=== PATIENT | female | born 1985 ===

== ENCOUNTER → 2021-12-08 13:34 | Outpatient (CLI) | payer OTHER, SELFPAY ==
--- NOTE | 2021-12-08 13:36 | DI.RAD.S_ITS ---
PROCEDURE: XR KNEE RT 3V INDICATIONS: right knee pain/swelling, overuse injury suspected TECHNIQUE: 3 views of the knee were acquired. COMPARISON: None. FINDINGS: Bones: No fractures or dislocations. No suspicious bony lesions. Apparent bone island at the medial metadiaphyseal junction near the cortex. Soft tissues: No joint effusion. No suspicious soft tissue calcifications. IMPRESSION: No effusion or trauma found. Bone island medially, as discussed. Dictated by: David Reyes M.D. on 12/08/2021 at 14:07 Approved by: David Reyes M.D. on 12/08/2021 at 14:07
== END ==
PROVIDERS: Referring Provider Student in an Organized Health Care Education/Training Program; Visit Provider Student in an Organized Health Care Education/Training Program
DX: M25.461 Effusion, right knee (principal); M25.561 Pain in right knee
CPT/HCPCS: 73562

== ENCOUNTER → 2023-06-26 09:58 | Outpatient (CLI) | payer OTHER, SELFPAY ==
[2023-06-26 10:57] LABS: Add Manual Diff / Slide Review NO; Basophils Absolute Auto 0 /uL (0-100); Basophils Percent Auto 0.3 % (0-2); Eosinophils Absolute Auto 100 /uL (0-450); Eosinophils Percent Auto 1.7 % (2-4); Hematocrit 37.4 % (36-46); Hemoglobin 12.8 g/dL (12.0-16.0); Lymphocytes Absolute Auto 1400 /uL (1100-4500); Lymphocytes Percent Auto 22.2 % (25-40); Mean Corpuscular HGB Conc 34.3 % (30-36); Mean Corpuscular Hemoglobin 32.3 PG (26-34); Monocytes Absolute Auto 500 /uL (0-900); Monocytes Percent Auto 7.8 % (3-14); Neutrophils Absolute Auto 4200 /uL (1500-7000); Platelet Count 297 X10^3/uL (150-400); Red Blood Cell Count 3.97 X10^6/uL (4.0-5.2); Red Cell Distribution Width 12.8 % (11.6-14.8); White Blood Cell Count 6.2 X10^3/uL (4.5-11.0)
[2023-06-27 07:20] LABS: RPR Screen Non Reactive (Non Reactive)
[2023-06-27 13:59] LABS: Varicella IgG Antibody <135 index (Immune >165)
[2023-06-27 17:05] LABS: Hepatitis B Surface Antigen NEGATIVE s/c (NEGATIVE); Rubella Antibody IgG > 350.0 IU/mL (>15)
[2023-06-27 17:25] LABS: HIV 1 & 2 Ab/Ag 4th Gen Combo NEGATIVE (NEGATIVE); Hep C Virus Ab w/Reflex Quant NEGATIVE s/c (NEGATIVE)
== END ==
PROVIDERS: Referring Provider Specialist; Visit Provider Specialist
DX: Z34.80 Encounter for supervision of other normal pregnancy, unspecified trimester (principal)
CPT/HCPCS: 36415; 80055; 86787; 86803; 86850; 86900; 86901; 87086; 87389

== ENCOUNTER → 2023-07-10 11:46 | Outpatient (CLI) | payer OTHER, SELFPAY | PROVIDERS: Referring Provider Obstetrics & Gynecology; Visit Provider Obstetrics & Gynecology | DX: Z34.81 Encounter for supervision of other normal pregnancy, first trimester (principal); Z3A.13 13 weeks gestation of pregnancy | CPT/HCPCS: 36415 ==

== ENCOUNTER → 2023-08-07 11:40 | Outpatient (CLI) | payer OTHER, SELFPAY | PROVIDERS: Referring Provider Obstetrics & Gynecology; Visit Provider Obstetrics & Gynecology | DX: Z3A.17 17 weeks gestation of pregnancy (principal); Z34.82 Encounter for supervision of other normal pregnancy, second trimester | CPT/HCPCS: 36415; 82105 ==

== ENCOUNTER → 2023-09-04 11:57 | Outpatient (CLI) | payer OTHER, SELFPAY ==
--- NOTE | 2023-09-04 11:58 | DI.US.S_ITS ---
PROCEDURE: US OB >= 14 WEEKS FETUS INDICATIONS: 20 Week Anatomy Scan OUTSIDE/PRIOR DATING DATA: Last menstrual period (LMP): 04/08/23. LMP-based estimated date of delivery (JAN): 01/13/24. First dating scan (date and location): 06/12/23. Estimated date of delivery (JAN) from first dating scan: 01/11/24. The calculations are made using the clinical JAN of 01/13/24. TECHNIQUE: Real-time scanning was performed of the fetus, with image documentation and biometric measurements. Endovaginal scanning: Not performed COMPARISON: None. FINDINGS: General: A single living intrauterine gestation is present. Presentation: Transverse, head to maternal right. Placenta: Placental position is posterior , without previa. Amniotic fluid index: 18.8 cm, normal range is 5-24 cm. Single deepest vertical pocket is 5.4 cm. heart rate: 158 beats per minute. Maternal cervical canal: Closed and 5.8 cm long. Normal lower limit is 2.5 cm. biometrics: Biparietal diameter: 5.1 cm, 21 weeks three days Head circumference: 19.6 cm, 21 weeks five days Abdominal circumference: 4.0 cm, 22 weeks five days Femur length: 4.0 cm, 22 weeks five days Clinically estimated gestational age: 21 weeks two days Composite gestational age from present scan: 22 weeks 0 days Estimated weight and percentile: 499 g, 93rd percentile Anatomic survey: Neuro: Ventricles are non-dilated at less than 10 mm. Cisterna magna is normal at 3-11 mm. Cerebellum is normal in size and morphology. Nuchal skin fold: Normal at less than 6 mm between 14-21 weeks gestational age. Face: Nose and lips, facial profile are normal. Spine: No evidence for spina bifida. Heart: 4-chambered heart is present, with normal ventricular outflow tracts. Diaphragm: Diaphragm is intact. Stomach: Left-sided stomach is present. Kidneys: No hydronephrosis. Normal is less than 5 mm in 2nd trimester, less than 7 mm in 3rd trimester. Cord: 3-vessel cord has orthotopic insertion. Bladder: Normal in size. Extremities: All 4 extremities identified. IMPRESSION: Single living intrauterine with composite gestational age in good agreement with clinical gestational age. Symmetric growth and normal anatomy. Closed cervix and normal amniotic fluid volume. Posterior placenta without previa. We strive to produce accurate, complete, and clear reports of imaging services. To assist us in improving patient care, this report was composed using standard report templates and voice recognition software. Therefore, it may contain abnormal punctuation, insertions and/or omissions. Occasional wrong-word or sound-alike substitutions may occur. Though we review the report and make efforts to correct it, we do recommend that the report be read carefully in proper context to recognize any text inaccuracies. Dictated by: Erin Zuñiga M.D. on 09/04/2023 at 15:31 Approved by: Erin Zuñiga M.D. on 09/04/2023 at 15:36
== END ==
PROVIDERS: Referring Provider Obstetrics & Gynecology; Visit Provider Obstetrics & Gynecology
DX: Z34.82 Encounter for supervision of other normal pregnancy, second trimester (principal); Z3A.22 22 weeks gestation of pregnancy
CPT/HCPCS: 76811

== ENCOUNTER → 2023-10-02 11:07 | Outpatient (CLI) | payer OTHER, SELFPAY ==
[2023-10-02 14:15] LABS: Hematocrit 33.9 % (36-46); Hemoglobin 11.8 g/dL (12.0-16.0)
[2023-10-02 14:49] LABS: GTT (PREG) 1 Hour PP 50gm Dose 185 mg/dL (76-139)
== END ==
PROVIDERS: Referring Provider Obstetrics & Gynecology; Visit Provider Obstetrics & Gynecology
DX: Z34.82 Encounter for supervision of other normal pregnancy, second trimester (principal); Z3A.26 26 weeks gestation of pregnancy
CPT/HCPCS: 36415; 82950; 85014; 85018

== ENCOUNTER → 2023-10-11 12:45 | Outpatient (CLI) | payer OTHER, SELFPAY ==
--- NOTE | 2023-10-11 14:36 | DIAB.GDA ---
Initial Gestational Diabetes Assessment Name: Flavio Dutton Date: 10/11/23 Time: 1-210p Dx: Gestational Diabetes Provider: Rachael JAN: 01/13/24 Weeks: 26 Flavio presents today for initial visit, accompanied by her spouse Gigi and her two sons. Denies any PMH of GDM with previous pregnancies, however states with last was borderline. Reports often eats 1-2x per day, skipping meals and snacks. Then portions are often large in carbs, some protein, and limited in veggies States due to the nature of her job she may need a letter asking for time to check BG and have meals/snacks. Diet Recall: : 3-4 pancakes with butter, coffee with sweet creamer, 8oz milk 2-430p: nothing or 3c rice with protein +/- 1c fruit 6-8p: 3c rice or pasta with protein +/- 1c fruit 9p: 2c ice cram water 40-50oz Anthropometrics: Ht: 65 Wt: 192# 10/02/23 Prepregnancy wt: 178# Physical Activity: No program, but very active in walking at work. Self-Monitoring Blood Glucose: None. Has rx, but has not picked up yet. Diabetes Medications: none Pertinent Labs: Screen 185 mg/dl Nutrition Rx: Carbohydrates: Meal: 45-60g lunch and dinner; 30g breakfast Snack: 15-30g Nutrition Diagnosis: Altered nutrition related lab value r/t GDM dx aeb recent OGTT Excessive CHO intake r/t nutrition related knowledge deficit and >5 hours without eating resulting in excessive hunger aeb diet recall indicating 135-150g CHO per lunch and dinner Intervention: This participant was very receptive. Provided appropriate educational handouts. Discussed the following topics: GDM pathophysiology and impact of hyperglycemia on mom and baby Risk for T2DM for mom and baby in the future Ways to reduce risk T2DM Plate Method, meal timing, carb counting, pairing macronutrients and spreading out CHO for better BG management Blood glucose goals (FBG: <95 and 2 hour <120 mg/dL); importance of checking 4x per day (FBG and pc) BG monitoring technique Impact of macronutrients on blood glucose Recommended servings for carbohydrates at meals and snacks Brainstormed appropriate meal plan based on her food preferences Provided a letter to employer with need for checking BG and eating q 3-4 hours for BG management Role of physical activity and following provider guidelines for safety Goals: Try to eat q 3-4 hours Keep carbs to lunch and dinner around 1c it support analyst meter and supplies Follow-up: MERC[facility] LING follow-up in one week Zulma Delaney RDN, ANURADHA Certified Diabetes Care and Email Marketing Specialist T: [phone] F: [phone] [email or web address] Thank you for this referral
== END ==
PROVIDERS: Referring Provider Obstetrics & Gynecology; Visit Provider Obstetrics & Gynecology
DX: O24.419 Gestational diabetes mellitus in pregnancy, unspecified control (principal); Z3A.26 26 weeks gestation of pregnancy; Z71.3 Dietary counseling and surveillance
CPT/HCPCS: 97802

== ENCOUNTER → 2023-10-17 12:55 | Outpatient (CLI) | payer OTHER, SELFPAY ==
--- NOTE | 2023-10-17 13:37 | DIAB.GDFU ---
Follow-up Gestational Diabetes Assessment Name: Flavio Dutton Date: 10/17/23 Time: 1-130p Dx: Gestational Diabetes Provider: Rachael JAN: 01/13/24 Weeks: 27 Flavio presents today for follow-up visit, accompanied by her spouse Gigi and her two sons. In review of diet recall, she has cut out rice/potatoes. Did have two meals with pasta with moderate portions resulting in within goal BG. Elevations in BG often due to large carb portions at breakfast and limited protein at that meal. Reports salads at some meals, resulting in <100mg/dl BG. Switched to sf creamer. Has questions about sugar subs and caffeine intake. Sometimes going >5 hours without eating and having excessive hunger at times. Diet Recall: : 3-4 pancakes with butter, coffee with sf creamer, 8oz milk 4p: salad OR maori yogurt with cheese and two slices bread 6-8p: salad OR 2oz dry pasta with meat/sauce Anthropometrics: Ht: 65 Wt: 192# 10/02/23 Prepregnancy wt: 178# Physical Activity: No program, but very active in walking at work. Self-Monitoring Blood Glucose: Picked up meter and is checking FBG and 2 hour pc. Elevations after breakfast due to high CHO and low protein intake. BG under 100mg/dl after meals at times due to below 30g CHO intake. Date Pre Post Pre Post Pre Post HS 10/11 94 107 97 10/12 80 135 103 105 10/13 94 95 95 92 10/14 92 180 100 95 10/15 95 161 92 97 10/16 92 107 Diabetes Medications: none Pertinent Labs: Screen 185 mg/dl Nutrition Rx: Carbohydrates: Meal: 45-60g lunch and dinner; 30g breakfast Snack: 15-30g Nutrition Diagnosis: Altered nutrition related lab value r/t GDM dx aeb recent OGTT Excessive CHO intake r/t nutrition related knowledge deficit and >5 hours without eating resulting in excessive hunger aeb diet recall indicating 135-150g CHO per lunch and dinner- improved/in progress Inconsistent CHO intake r/t nutrition knowledge deficit aeb pt report and diet recall and BG results- new Intervention: This participant was very receptive. Provided appropriate educational handouts. Discussed the following topics: Reviewed CHO recs at meals Encouraged 30g CHO at breakfast + protein Discussed adequate nutrition intake at lunch and dinner Reviewed ADA recs for postprandial numbers at 2 hour of 100-120mg/dl Discussed caffeine recs for and sub sugars in moderation Goals: Try to eat q 3-4 hours- improved/in progress Keep carbs to lunch and dinner around 1c- improved welding supervisor meter and supplies- met Keep breakfast to no more than 2 small pancakes or toast + protein- new Optional evening snack 3-4 hours after dinner- new Avoid goign >5 hours without eating- new Follow-up: MERCEDES LING follow-up in two weeks Zulma Delaney RDN, ANURADHA Certified Diabetes Care and [employer] T: [phone] F: [phone] [email or web address] Thank you for this referral
== END ==
LOC: DIET 12:55
PROVIDERS: Referring Provider Obstetrics & Gynecology
DX: O24.419 Gestational diabetes mellitus in pregnancy, unspecified control (principal); Z3A.27 27 weeks gestation of pregnancy; Z71.3 Dietary counseling and surveillance
CPT/HCPCS: 97803

== ENCOUNTER → 2023-11-01 14:52 | Outpatient (CLI) | payer OTHER, SELFPAY ==
--- NOTE | 2023-11-05 17:37 | DIAB.GDFU ---
Follow-up Gestational Diabetes Assessment Name: Flavio Dutton Date: 11/01/23 Time: 315-955 Dx: Gestational Diabetes Provider: Rachael JAN: 01/13/24 Weeks: 29 Flvaio presents today for follow-up visit, accompanied by her spouse Gigi and her two sons. Reports trying to eat more frequently, small/freq meals to reduce portions. Has noticed elevation with white rice. Some higher CHo meals reported in BG log book and correlate with elevations, ie 3c pasta with 2 mini croissants 137mg/dl at 2 hours / 2c rice at dinner with a 226 mg/dl at 2 hours. has added protein to breakfast, as discussed last visit, ie sausage or eggs Diet Recall: Ba: 2-3 pancakes with butter, coffee with sf creamer, 8oz milk L: pancit noodles and hot dog OR1c rice with soup or ribs D: salad with eggs, agosto cheese OR 1c rice with beef and broccoli OR pasta with bread Anthropometrics: Ht: 65 Wt: 190# 10/30/23 192# 10/02/23 Prepregnancy wt: 178# Physical Activity: No program, but very active in walking at work. Has stationary bike at home. Self-Monitoring Blood Glucose: Checking FBG and 2 hour pc. 1 elevated FBG this past week, 1/6 elevated pc breakfast elevated which is an improvement, some missing data at lunch, and 2/6 elevated dinners with one particularly elevated 226 after 2c of white rice. Date Pre Post Pre Post Pre Post notes 10/25 84 74 95 10/26 90 97 226 2c rice 10/27 93 125 107 107 10/28 91 113 107 103 10/29 88 108 103 120 10/30 95 102 98 137 10/31 96 Diabetes Medications: none Pertinent Labs: Screen 185 mg/dl Nutrition Rx: Carbohydrates: Meal: 45-60g lunch and dinner; 30g breakfast Snack: 15-30g Nutrition Diagnosis: Altered nutrition related lab value r/t GDM dx aeb recent screen and referral Excessive CHO intake r/t excessive hunger aeb log sheet indicating high CHO dinner at times - in progress Inconsistent CHO intake r/t nutrition knowledge deficit aeb pt report and diet recall and BG results- improved/in progress Intervention: This participant was very receptive. Provided appropriate educational handouts. Discussed the following topics: Reviewed CHO recs at meals Encouraged movement after meals Reviewed BG goals and impact of higher CHO intake Encouraged higher fiber CHO options Set SMART goals Goals: Keep breakfast to no more than 2 small pancakes or toast + protein- improved Optional evening snack 3-4 hours after dinner- continue Avoid going >5 hours without eating- improved/ in progress Keep pasta to 1-2c with meat sauce (45-60g CHO) - new Try brown rice - new Try stationary bike after meal- new Follow-up: MERCEDES LING follow-up in two weeks Zulma Delaney RDN, ANURADHA Certified Diabetes Care and Loom Checker T: [phone] F: [phone] [email or web address] Thank you for this referral
== END ==
PROVIDERS: Referring Provider Obstetrics & Gynecology
DX: O24.419 Gestational diabetes mellitus in pregnancy, unspecified control (principal); Z3A.29 29 weeks gestation of pregnancy; Z71.3 Dietary counseling and surveillance
CPT/HCPCS: 97803

== ENCOUNTER → 2023-11-14 13:40 | Outpatient (CLI) | payer OTHER, SELFPAY ==
--- NOTE | 2023-11-14 17:17 | DIAB.GDFU ---
Follow-up Gestational Diabetes Assessment Name: Flavio Dutton Date: 11/14/23 Time: 140-220p Dx: Gestational Diabetes Provider: Rachael JAN: 01/13/24 Weeks: 30-31 Flavio presents today for follow-up visit, accompanied by her spouse Gigi. Has been tracking food intake. Reviewed food journal. Most foods within recommended carb with paired protein. Reports continued improved meal timing without skipping meals/snacks. Continued added protein at breakfast as previously discussed. No pasta lately, which was causing some elevations in large portions last visit. Tried brown rice and enjoys it. Anthropometrics: Ht: 65 Wt: 190# 10/30/23 192# 10/02/23 Prepregnancy wt: 178# Physical Activity: No stationary bike use. Interested in treadmill. Asked about weight lifting during Self-Monitoring Blood Glucose: Checking FBG and 2 hour pc. All FBG in goal. 2 elevated pc readings over this past week related to larger portions. Date Pre Post Pre Post Pre Post notes 11/07 90 123 102 11/08 89 101 101 103 11/09 90 96 116 88 11/10 86 98 102 113 11/11 87 101 98 103 11/12 91 119 127 11/13 89 96 Diabetes Medications: none Pertinent Labs: Screen 185 mg/dl Nutrition Rx: Carbohydrates: Meal: 45-60g lunch and dinner; 30g breakfast Snack: 15-30g Nutrition Diagnosis: Altered nutrition related lab value r/t GDM dx aeb recent screen and referral Excessive CHO intake r/t excessive hunger aeb log sheet indicating high CHO dinner at times - improved Inconsistent CHO intake r/t nutrition knowledge deficit aeb pt report and diet recall and BG results- improved Intervention: This participant was very receptive. Provided appropriate educational handouts. Discussed the following topics: Reviewed nutrition changes and food log book Reviewed BG trends and goals Discussed what seems to be working for her Physical activity Set SMART goals Goals: Keep pasta to 1-2c with meat sauce (45-60g CHO) - continue Try brown rice - met Try stationary bike after meal- not met Stationary bike or treadmill 10 min per day- new Ask OB about light weight lifting- new Follow-up: MERCEDES LING follow-up in two weeks Zulma Delaney RDN, ANURADHA Certified Diabetes Care and Technical Healthcare Consultant T: [phone] F: [phone] [email or web address] Thank you for this referral
== END ==
PROVIDERS: Referring Provider Obstetrics & Gynecology
DX: O24.419 Gestational diabetes mellitus in pregnancy, unspecified control (principal); Z3A.30 30 weeks gestation of pregnancy; Z71.3 Dietary counseling and surveillance
CPT/HCPCS: 97803

== ENCOUNTER → 2023-11-28 13:28 | Outpatient (CLI) | payer OTHER, SELFPAY ==
--- NOTE | 2023-11-29 17:14 | DIAB.GDFU ---
Follow-up Gestational Diabetes Assessment Name: Flavio Dutton Date: 11/28/23 Time: 150-215p Dx: Gestational Diabetes Provider: Rachael JAN: 01/13/24 Weeks: 33 Flavio presents today for follow-up visit, accompanied by her spouse Gigi. Has been tracking food intake. Reviewed food journal. some high carb intake r/t large brown rice portions, paired with meat, no veggies. Has questions regarding sugar substitutes, ie sf chocolate. Also, some questions regarding hypoglycemia , ie cause and risk. Anthropometrics: Ht: 65 Wt: 189.5# 11/21/23 190# 10/30/23 192# 10/02/23 Prepregnancy wt: 178# Physical Activity: No stationary bike use. Interested in treadmill. No change in activity. Currently on maternity leave. Self-Monitoring Blood Glucose: Checking FBG and 2 hour pc. All FBG in goal. 2 elevated pc readings over this past week related to larger portions. Missing some results. Date Pre Post Pre Post Pre Post notes 11/21 89 101 11/22 84 98 99 128 80g CHO rice at dinner 11/23 91 101 116 11/24 86 118 97 127 80g CHO rice at dinner 11/25 89 102 96 94 11/26 85 118 11/27 90 101 Diabetes Medications: none Pertinent Labs: Screen 185 mg/dl Nutrition Rx: Carbohydrates: Meal: 45-60g lunch and dinner; 30g breakfast Snack: 15-30g Nutrition Diagnosis: Altered nutrition related lab value r/t GDM dx aeb recent screen and referral Excessive CHO intake r/t excessive hunger and inadequate vegetable portions aeb food journal and BG log- new Physical inactivity r/t stage of change contemplative aeb pt report of interest in activity but no current program- new Intervention: This participant was very receptive. Provided appropriate educational handouts. Discussed the following topics: Reviewed nutrition changes and food log book Reviewed BG trends and goals Review of CHO portions and recommendations Physical activity she enjoys and impact on BG Sugar substitutes Cause of potential hypoglycemia and how to reduce risk Set SMART goals Goals: Stationary bike or treadmill 10 min per day- not met Ask OB about light weight lifting- not met Try half banana in protein shake- new Reduce rice portion to 45g- new Add veggies to meals- new 10 min activity after meal- new Follow-up: RDN CDCES follow-up in two weeks Zulma Delaney RDN, ANURADHA Certified Diabetes Care and Reinforcing Steel Machine Operator T: [phone] F: [phone] [email or web address] Thank you for this referral
== END ==
PROVIDERS: Referring Provider Obstetrics & Gynecology
DX: O24.913 Unspecified diabetes mellitus in pregnancy, third trimester (principal); Z3A.33 33 weeks gestation of pregnancy; Z71.3 Dietary counseling and surveillance
CPT/HCPCS: 97803

== ENCOUNTER → 2023-12-12 09:35 | Outpatient (CLI) | payer OTHER, SELFPAY ==
--- NOTE | 2023-12-12 10:31 | DIAB.FU ---
Follow-up Diabetes Education Assessment Name: Flavio Dutton Date: 12/12/23 Time: 177-4364a Dx: Type II Diabetes Provider: Rachael JAN: 01/13/24 Weeks: 35 Flavio presents today for follow-up visit, accompanied by her spouse Gigi. Has been tracking food intake. Reviewed food journal. some high carb intake r/t rice portions and sweets, but overall incorporating more veggies. Reduced CHO in protein shake. Has questions about blood sugars and risk for T2DM. Does not currently have PCP. Anthropometrics: Ht: 65 Wt: 189.5# 11/21/23 190# 10/30/23 192# 10/02/23 Prepregnancy wt: 178# Physical Activity: Started using treadmill since last visit, 2x since last visit 25-60 mins. Self-Monitoring Blood Glucose: Checking FBG and 2 hour pc. All FBG in goal. 2 elevated pc readings over this past week related to larger portions. Date Pre Post Pre Post Pre Post notes 12/05 90 116 12/06 89 125 109 12/07 91 106 109 12/08 88 113 12/09 90 114 12/10 91 118 126 12/11 89 Diabetes Medications: none Pertinent Labs: Screen 185 mg/dl Intervention: This participant was very receptive. Provided appropriate educational handouts. Discussed the following topics: Reviewed nutrition changes and food log book Reviewed BG trends and goals Review of CHO portions and recommendations Physical activity she enjoys and impact on BG Review of macronutrient recommendations during Benefits, resources, and nutrition for recommendations for nutrition and physical activity recommendations for T2DM risk reduction OGTT at 6-12 weeks Checking blood sugars twice per week (goal: fasting <100 mg/dL and 2 hour pc <140 mg/dL) until 6 week check-up HgA1c q 1-3 years. Set SMART goals Goals: Try half banana in protein shake- met Reduce rice portion to 45g- met/in progress Add veggies to meals- met 10 min activity after meal- improved Follow BG recs- new Establish with PCP - new Follow-up: MERCED[facility] LING follow-up sayra Delaney RDN, ANURADHA Certified Diabetes Care and Production Mechanic [employer] P: [phone] Thank you for this referral
== END ==
PROVIDERS: Referring Provider Obstetrics & Gynecology
DX: O24.419 Gestational diabetes mellitus in pregnancy, unspecified control (principal); Z3A.35 35 weeks gestation of pregnancy; Z71.3 Dietary counseling and surveillance
CPT/HCPCS: G0108

== ENCOUNTER → 2023-12-19 14:50 | Outpatient (CLI) | payer OTHER, SELFPAY ==
[2023-12-20 13:15] LABS: Strep Grp B PCR NEG for Grp B Strep
== END ==
PROVIDERS: Visit Provider Specialist
DX: Z34.83 Encounter for supervision of other normal pregnancy, third trimester (principal); Z3A.36 36 weeks gestation of pregnancy
CPT/HCPCS: 87653

== ENCOUNTER 2024-01-09 07:06 | Inpatient (IN) | payer OTHER, SELFPAY ==
--- NOTE | 2024-01-09 08:03 | P.HPOB_ITS ---
OB HPI Date/Time Date of admission: 01/09/24 Date Patient Seen: 01/09/24 Time Patient Seen: 08:04 History of Present Condition Chief complaint: INDUCTION JAN Calculator 2 Estimated Delivery Date Method Current WG Current Estimate 01/13/24 LMP (Certain) 39w 3d Other Estimates 01/11/24 Ultrasound #1 39w 5d Estimated Gestational Age (weeks): 39+3 : 4 Para: 3 care: good care, initiated at week # (9), number of visits and pounds weight gain (15) Dating criteria OB: LMP confirmed by 1st trimester US Ultrasounds: normal 1st trimester US and normal mid trimester US Obstetrical complications: gestational diabetes (diet controlled) Medical complications OB: none Indications Indication for induction OB: gestational diabetes (Diet-controlled) Preadmission Labs Last OB Lab Results: 2 Blood Type O Positive 01/09/24 07:45 Antibody Screen Negative 01/09/24 07:45 Hct 39.0 % (36-46) 01/09/24 07:45 Hgb 13.4 g/dL (12.0-16.0) 01/09/24 07:45 Hep Bs Antigen Negative s/c (NEGATIVE) 06/26/23 10:02 Hepatitis C Antibody Negative s/c (NEGATIVE) 06/26/23 10:02 Rubella Antibody > 350.0 IU/mL (>15) 06/26/23 10:02 VZV IgG Antibody <135 index (Immune >165) L 06/26/23 10:02 Glucose 1 Hr 50 gm 185 mg/dL (76-139) H 10/02/23 11:16 Hemoglobin A1c 5.3 % (4.6-6.2) 11/26/16 12:02 Group B Strep (PCR) Neg for grp b strep 12/19/23 15:10 -: Chlamydia screen: negative, Gonorrhea screen: negative and Urine: negative -: PAP smear: Normal Genetic Screens: Cell-free DNA: Normal (Normal, low risk female) External Labs -: Urine: negative Prior (ies) Past Pregnancies Del. Date GA/Weeks Labor Lgth Wt Sex Route Outcome Anesthesia Place Delv Breastfeed Preg Comp Name 02/18/06 ~40 6 lb 8 oz Female vaginal live - full term ep idural IH 5-6 months none Brandon 06/10/15 ~40 10 lb 1 oz Male vacuum live - full term ep idural IH 11 months none Marija 06/19/18 ~40 2 9 lb Male vaginal live - full term none IH 7 months other [place] Delivery Date: 02/18/06 Last Updated by: Aarti Christina RN of SIDS around 6 months old Delivery Date: 06/19/18 Last Updated by: Aarti Christina RN precip delivery Evaluation Evaluation Baseline heart rate: 135 Variability: Moderate (11-25) monitor accelerations: Present Monitor Decelerations: Absent Contraction Frequency (minutes): 2 Uterine Contraction Intensity: Mild Status: Category l Dilation (cm): 3 Effacement (%): 80 station: -1 Position of cervix: mid Consistency: medium [facility] Medical History (Updated 11/24/23 @ 18:07 by Ritu Cano MD) Foot pain (~2022) Vaginal delivery perineal pain Surgical History (Updated 05/21/23 @ 11:09 by Aarti Christina RN) [place] teeth extracted Social History marital status: unmarried,living together number of children: 2 household members: significant other and children lives independently: Yes caregiver/support person: Yes housing: house pets and animals: Yes (2 dogs) education level: high school (did not finish) 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) current occupational exposures/hazards: No special linden needs: No travel history: over 6 months ago seatbelt use: always water heater temp set < 120 deg: Yes working smoke detector in home: Yes fire extinguisher in home: Yes carbon monox detector in home: Yes firearms in home: No do you feel safe at home: Yes Smoking Status: Never smoker second hand exposure: No alcohol intake: former (occasionally when not ) substance use type: does not use during the past year weight has: increased > 10 lbs well-balanced diet: rarely or never daily servings fruits/ve-1 caffeine: Yes (mostly decaf since positive test) Type(s) of exercise: walking Meds Home Medications and Allergies Home Medications Medication Instructions Recorded Confirmed Type prenat.vits,micha,xhf-ivio-bxcrq 1 tab PO DAILY 07/19/17 01/09/24 History codeine 10 mg-guaifenesin 100 mg/5 10 ml PO Q4-6H PRN cough #200 mL 09/02/23 01/09/24 Rx mL oral liquid blood sugar diagnostic (Blood #100 ea 10/09/23 01/02/24 Rx Glucose Test strips) blood-glucose meter #1 ea 10/09/23 01/02/24 Rx lancets (Accu-Chek Softclix #100 ea 10/09/23 01/02/24 Rx Lancets) Allergies Allergy/AdvReac Type Severity Reaction Status Date / Time No Known Drug Allergies Allergy Unknown Verified 01/02/24 10:28 [NO KNOWN DRUG ALLERGIES] OB Exam Narrative Exam Narrative: Generally: No acute distress Fundal height: 40 cm Estimated weight: 7-1/2 lb Extremities: No edema Objective Labs 01/09/24 07:45 Assessment and Plan Assessment and Plan Assessment and Plan narrative: Assessment: 38-year-old 3 para 3002 at 39-,3/7 weeks gestation with diet-controlled gestational diabetes for induction of labor, favorable cervix GBS negative Plan: Pitocin per protocol Artificial rupture of membranes when able Patient declines epidural Expected management to spontaneous vaginal delivery Time-Based Coding :: [TOTAL MINUTES] spent with patient and on the chart (including review of chart, obtaining history, exam, reviewing outside data, placing orders, documenting exam and treatment plan, and counseling patient) on [DATE].
[2024-01-09 08:09] LABS: Add Manual Diff / Slide Review NO; Basophils Absolute Auto 100 /uL (0-100); Basophils Percent Auto 0.7 % (0-2); Eosinophils Absolute Auto 100 /uL (0-450); Eosinophils Percent Auto 0.6 % (2-4); Hemoglobin 13.4 g/dL (12.0-16.0); Lymphocytes Absolute Auto 1700 /uL (1100-4500); Lymphocytes Percent Auto 19.2 % (25-40); Mean Corpuscular HGB Conc 34.3 % (30-36); Mean Corpuscular Hemoglobin 33.8 PG (26-34); Mean Corpuscular Volume 98.6 fL (80-100); Monocytes Absolute Auto 800 /uL (0-900); Monocytes Percent Auto 8.7 % (3-14); Neutrophils Absolute Auto 6500 /uL (1500-7000); Neutrophils Percent Auto 70.8 % (50-75); Platelet Count 292 X10^3/uL (150-400); Red Blood Cell Count 3.96 X10^6/uL (4.0-5.2); Red Cell Distribution Width 12.9 % (11.6-14.8); White Blood Cell Count 9.1 X10^3/uL (4.5-11.0)
--- NOTE | 2024-01-09 11:04 | PM.OBPNLAB ---
Date/Time Date Patient Seen: 01/09/24 Time Patient Seen: 11:04 Pain Control Pain control: tolerating well Pelvic Exam Amniotic membrane status: Ruptured (08 with clear amniotic fluid) Comments: Deferred cervical exam Contractions Contractions on admission: regular Monitor mode: External Pitocin rate (mU/min): 0 Contraction frequency (min): 2 Contraction duration (min): 1 Contraction pattern: Regular Contraction intensity: Moderate Status status: Category l Heart Rate Baseline: 135 Monitor Accelerations: Present Monitor Decelerations: Absent Monitor Variability: Moderate Assessment and Plan Assessment: induction ongoing Plan: continuous present management Comments: Begin Pitocin if needed
[2024-01-09] MEDS: OXYTOCIN PREMIX 30 UNIT/500 ML PLAST..BAG IV (13:07)
[2024-01-09] MEDS: LACTATED RINGERS 1,000 ML 100 ML IV (13:14)
--- NOTE | 2024-01-09 13:31 | PM.OBPNLAB ---
Date/Time Date Patient Seen: 01/09/24 Time Patient Seen: 13:31 Pain Control Pain control: tolerating well Pelvic Exam Dilation (cm): 5 Effacement (%): 80 station: -1 Amniotic membrane status: Ruptured (0805 with clear amniotic fluid) Contractions Monitor mode: External Contraction frequency (min): 6 Contraction pattern: Irregular Contraction intensity: Moderate Status status: Category l Heart Rate Baseline: 135 Monitor Accelerations: Present Monitor Decelerations: Absent Monitor Variability: Moderate Assessment and Plan Assessment: induction ongoing Comments: Begin Pitocin augmentation Expected management to spontaneous vaginal delivery Ambulation
[2024-01-09] MEDS: LIDOCAINE 1% 20 ML INJ (15:50)
--- NOTE | 2024-01-09 17:31 | P.PCNOB_ITS ---
Events: Labor Augmentation Labor & Delivery Delivery date: 01/09/24 Cervical ripening method: none Induction method: none Delivery augmentation: pitocin Delivery monitor: external FHT and external uterine Route of delivery: Episiotomy description: None L&D Laceration Description: Perineal - 2nd Degree and Vaginal - 1st Degree (left) Delivery repair: vicryl and chromic Estimated blood loss (mL): 200 Anesthesia Type: Local (For repair only) Complications: None Narrative: Patient complete and pushed with 2 contractions. At 3:38 p.m., a live female in tara delivered spontaneously in the HERMILA presentation, over an intact perineum. The remainder of the body delivered without difficulty and was placed on mom's abdomen. The cord was double clamped and cut after it stopped pulsing. Pitocin was given in the IV fluids. Cord bloods were obtained. The placenta delivered intact with a three-vessel cord at 3:47 p.m.. The fundus was massaged to firm. There was a second-degree perineal and a first-degree left vaginal laceration which were repaired in the usual fashion after 10 cc of 1% lidocaine were injected. Estimated blood loss 200 cc. Apgars 7 at 1 minute and 9 at 5 minutes. . Local anesthetic for repair only. weight 7 lb 15.9 oz. Mom and stable to recovery. [place] Baby 1: Infant gender: Female Presentation: vertex Position: Left Occiput Anterior Placenta delivery description: Spontaneous Cord Vessel Description: 3 Vessels score (1 min): 7 score (5 min): 9 weight: 7 lb 15.9 oz Plan for aftercare: Routine care
[2024-01-09] MEDS: IBUPROFEN 600 MG TABLET PO (18:08)
[2024-01-09] MEDS: WITCH HAZEL/GLYCERIN PADS 1 EACH TOP (18:08)
[2024-01-09] MEDS: DERMOPLAST SPRAY 20% 60 ML 1 SPRAY TOP (18:08)
[2024-01-09] MEDS: LANOLIN OINT 7 GM 1 APPLIC TOP (18:09)
[2024-01-10] MEDS: ACETAMINOPHEN 325 MG TABLET 650 MG PO (04:01)
== END 2024-01-10 11:50 | disposition home or self-care (01) | DRG 807 ==
PROVIDERS: Admitting Provider Obstetrics & Gynecology; Referring Provider Obstetrics & Gynecology; Visit Provider Obstetrics & Gynecology
DX: O24.420 Gestational diabetes mellitus in childbirth, diet controlled (principal); Z37.0 Single live birth; Z3A.39 39 weeks gestation of pregnancy; O70.1 Second degree perineal laceration during delivery
CPT/HCPCS: 36415; 59050; 59400; 59409; 85025; 86850; 86900; 86901; G0379; J2590